=== PATIENT | male | born 1930 | race Native Hawaiian/Other Pacific Islander ===

== ENCOUNTER 2017-02-11 06:55 | Outpatient (CLI) | payer OTHER ==
[~2017-02-11 06:55] MED LIST: ALLO300T23 PO; ASA LO-DOSE81 MG OR; FURO40TA93 PO; LISI20TA11 PO; PRILOSEC OTC20 MG OR
[2017-02-11 08:02] LABS: PLATELET COUNT 167 K/uL (142-355)
[2017-02-11 08:23] LABS: POTASSIUM 4.5 mmol/L (3.6-5.2); SODIUM 137 mmol/L (136-145)
== END 2017-02-11 19:01 | disposition home or self-care (01) ==
LOC: LABW 06:55
PROVIDERS: Internal Medicine
DX: I25.10 Atherosclerotic heart disease of native coronary artery without angina pectoris (principal); R94.6 Abnormal results of thyroid function studies
CPT/HCPCS: 36415; 80053; 80061; 81000; 84443; 85027

== ENCOUNTER 2017-11-17 07:06 | Outpatient (CLI) | payer OTHER ==
[2017-11-17 07:41] LABS: POTASSIUM 4.6 mmol/L (3.6-5.2); SODIUM 141 mmol/L (136-145)
[2017-11-17 07:52] LABS: PLATELET COUNT 140 K/uL (142-355)
== END 2017-11-17 19:36 | disposition home or self-care (01) ==
LOC: LABW 07:06
PROVIDERS: Internal Medicine
DX: N40.1 Benign prostatic hyperplasia with lower urinary tract symptoms (principal); N52.8 Other male erectile dysfunction
CPT/HCPCS: 36415; 80053; 85027

== ENCOUNTER 2018-05-13 12:30 | Outpatient (CLI) | payer OTHER | END 2018-05-13 19:15 | disposition home or self-care (01) | LOC: US 12:30 | DX: M79.89 Other specified soft tissue disorders (principal) ==

== ENCOUNTER 2018-05-23 07:01 | Outpatient (CLI) | payer OTHER ==
[2018-05-23 09:17] LABS: POTASSIUM 4.9 mmol/L (3.6-5.2)
== END 2018-05-23 22:59 | disposition home or self-care (01) ==
LOC: LABW 07:01
PROVIDERS: Internal Medicine
DX: M79.89 Other specified soft tissue disorders (principal)
CPT/HCPCS: 36415; 80048

== ENCOUNTER 2018-09-16 15:56 | Emergency (ER) | payer OTHER ==
[~2018-09-16] VITALS: Ht 177.8 cm; Wt 102.1 kg
[2018-09-16 16:01] VITALS: TEMP 98.1
[2018-09-16 16:52] LABS: PLATELET COUNT 171 K/uL (142-355)
[2018-09-16 17:00] LABS: POTASSIUM 4.1 mmol/L (3.6-5.2)
[2018-09-16 18:01] VITALS: BP 136/82
== END 2018-09-16 18:00 | disposition home or self-care (01) ==
LOC: ED 15:56
PROVIDERS: Family Medicine
DX: I73.89 Other specified peripheral vascular diseases (principal)
CPT/HCPCS: 80053; 85027; 85379; 99283

== ENCOUNTER 2019-02-24 18:36 | Emergency (ER) | payer OTHER ==
[~2019-02-24] VITALS: Ht 177.8 cm; Wt 102.1 kg
[2019-02-24 20:25] VITALS: BP 115/71; TEMP 98.2
== END 2019-02-24 20:25 | disposition home or self-care (01) ==
LOC: ED 18:36
DX: H10.33 Unspecified acute conjunctivitis, bilateral (principal); J06.9 Acute upper respiratory infection, unspecified
CPT/HCPCS: 99282

== ENCOUNTER 2019-09-01 11:24 | Outpatient (CLI) | payer OTHER | END 2019-09-01 21:58 | disposition home or self-care (01) | LOC: RAD 11:24 | DX: M25.562 Pain in left knee (principal) ==

== ENCOUNTER 2019-09-26 07:24 | Outpatient (CLI) | payer OTHER | END 2019-09-26 22:25 | disposition home or self-care (01) | LOC: LABW 07:24 | DX: M10.071 Idiopathic gout, right ankle and foot (principal) | CPT/HCPCS: 36415; 84550; 85651 ==

== ENCOUNTER 2020-01-21 00:52 | Emergency (ER) | payer OTHER ==
[~2020-01-21] VITALS: Ht 175.3 cm; Wt 104.3 kg
[2020-01-21 01:04] VITALS: BP 170/65; TEMP 98.2
== END 2020-01-21 01:29 | disposition home or self-care (01) ==
LOC: ED 00:52
DX: S90.862A Insect bite (nonvenomous), left foot, initial encounter (principal); S90.861A Insect bite (nonvenomous), right foot, initial encounter; W57.XXXA Bitten or stung by nonvenomous insect and other nonvenomous arthropods, initial encounter; Y92.89 Other specified places as the place of occurrence of the external cause
CPT/HCPCS: 99281

== ENCOUNTER 2020-03-15 05:47 | Outpatient (CLI) | payer OTHER ==
[2020-03-15 06:16] LABS: PLATELET COUNT 152 K/uL (142-355)
[2020-03-15 06:35] LABS: POTASSIUM 4.5 mmol/L (3.6-5.2)
== END 2020-03-15 22:04 | disposition home or self-care (01) ==
LOC: LABW 05:47
PROVIDERS: Internal Medicine
DX: I25.10 Atherosclerotic heart disease of native coronary artery without angina pectoris (principal); Z79.899 Other long term (current) drug therapy
CPT/HCPCS: 36415; 80053; 80061; 81000; 84439; 84443; 85027

== ENCOUNTER 2020-03-29 08:08 | Outpatient (CLI) | payer OTHER | END 2020-03-29 23:00 | disposition home or self-care (01) | LOC: US 08:08 | DX: I71.4 Abdominal aortic aneurysm, without rupture (principal); R19.09 Other intra-abdominal and pelvic swelling, mass and lump ==

== ENCOUNTER 2020-08-26 05:16 | Outpatient (CLI) | payer OTHER ==
[2020-08-26 06:05] LABS: PLATELET COUNT 162 K/uL (142-355)
[2020-08-26 06:38] LABS: POTASSIUM 4.1 mmol/L (3.6-5.2)
== END 2020-08-26 22:22 | disposition home or self-care (01) ==
LOC: LABW 05:16
PROVIDERS: Internal Medicine
DX: I25.10 Atherosclerotic heart disease of native coronary artery without angina pectoris (principal); Z79.899 Other long term (current) drug therapy
CPT/HCPCS: 36415; 80053; 80061; 81000; 84439; 84443; 85027; 87088

== ENCOUNTER 2020-10-27 04:29 | Emergency (ER) | payer OTHER ==
[~2020-10-27] VITALS: Ht 175.3 cm; Wt 104.3 kg
== END 2020-10-27 04:50 | disposition home or self-care (01) ==
LOC: ED 04:29
DX: R09.89 Other specified symptoms and signs involving the circulatory and respiratory systems (principal)
CPT/HCPCS: 99281